=== PATIENT | female | born 1955 | race Caucasian/White ===

== ENCOUNTER 2018-11-17 00:27 | Inpatient (IN) | payer OTHER ==
[~2018-11-17] VITALS: Ht 162.6 cm; Wt 66.2 kg
--- NOTE | 2018-11-17 00:34 | ED.ADGEN ---
Past History Past Medical History: Bronchitis, COPD, CVA, DVT, TIA, Other Smoking: Cigarettes Adult General Chief Complaint Chief Complaint ".. I have a broken heart...my this morning... now I have chest pain.. it really bad..sharp...." HPI HPI Patient is a 63 year old female who presents with above hx and complaints of chest pain. Pt is central, sharp and non-radiating. Pt.states pain is severe. Pt. started at 1900. Pain worse with movement -10/10, 5/10 when resting. Some complaints of shortness of breath. Pt. of 34 years coded this morning and .. Pt. denies prior cardiac hx, but has hx of CVA, carotid stents, HTN, DVT and blood clots. Pt. did take some of her nitro- without any effect on the chest pain. Pt. takes Plavix . Pt. does take daily ASA. Pt. denies any trauma. Pt. very depressed over the of this morning. Pt.does smoke. Does not have home oxygen. No hx of fever or chills. No travel or specific infectious ill contacts except who had a cold. No hx of immunosuppression. Pt. did not receive Flu vaccination this season. No hx of pneumovax or zoster vaccination. Does not remember her last tetanus vaccination. Pt. follows with Dr. Luna. Review of Systems Review of Systems Constitutional: Denies fever or chills [] Eyes: Denies change in visual acuity, redness, or eye pain [] HENT: Denies nasal congestion or sore throat [] Respiratory: Complaints of shortness of breath [] Cardiovascular: No additional information not addressed in HPI [] GI: Denies abdominal pain, nausea, vomiting, bloody stools or diarrhea [] : Denies dysuria or hematuria [] Musculoskeletal: Denies back pain or joint pain [] Integument: Denies rash or skin lesions [] Neurologic: Denies headache, focal weakness or sensory changes [] Endocrine: Denies polyuria or polydipsia [] All other systems were reviewed and found to be within normal limits, except as documented in this note. Family History Family History Non-contributory Current Medications Current Medications Current Medications Medications (Trade) Dose Ordered Sig/Lorene Start Time Stop Time Status Last Admin Dose Admin Acetaminophen (Tylenol) 650 mg PRN Q4HRS PRN 11/17/18 01:45 11/18/18 01:44 Info (Do NOT chart on this entry -- for MONITORING) 1 each PRN DAILY PRN 11/17/18 02:30 11/19/18 02:29 Iohexol (Omnipaque 350 Mg/ml) 100 ml 1X ONCE 11/17/18 02:30 11/17/18 02:31 DC 11/17/18 02:29 100 ML Lactated Ringer's 1,000 ml @ 100 mls/hr Q10H 11/17/18 01:00 11/17/18 10:59 11/17/18 01:24 100 MLS/HR Lorazepam (Ativan) 1 mg 1X ONCE 11/17/18 01:00 11/17/18 01:05 DC 11/17/18 01:25 1 MG Morphine Sulfate (Morphine 2mg Syringe) 2 mg PRN Q2HR PRN 11/17/18 01:45 11/18/18 01:44 Morphine Sulfate (Morphine 4mg Syringe) 4 mg STK-MED ONCE 11/17/18 01:20 11/17/18 01:21 DC Nitroglycerin (Nitro-Bid Oint) 1 inch 1X ONCE 11/17/18 01:00 11/17/18 01:05 DC 11/17/18 01:26 1 INCH Ondansetron HCl (Zofran) 4 mg PRN Q4HRS PRN 11/17/18 01:45 11/18/18 01:44 Allergies Allergies Allergies Coded Allergies Type Severity Reaction Last Updated Verified niacin Adverse Reaction Severe 11/17/18 Yes Uncoded Allergies Type Severity Reaction Last Updated Verified metal Adverse Reaction Intermediate Rash 11/17/18 Physical Exam Physical Exam Constitutional:Moderately acute distress, non-toxic appearance. [] HENT: Normocephalic, atraumatic, bilateral external ears normal, oropharynx moist, no oral exudates, nose normal. [] Eyes: PERRLA, EOMI, conjunctiva normal, no discharge. Glasses. Neck: Normal range of motion, no tenderness, supple, no stridor. [] Cardiovascular:Heart rate regular rhythm, no murmur [] Lungs & Thorax: Bilateral breath sounds equal with scattered wheezes on auscultation []Occasional cough. Hypoxic on room air. Abdomen: Bowel sounds normal, soft, no tenderness, no masses, no pulsatile masses. [] Skin: Warm, dry, no erythema, no rash. Poor turgor. Spider angiomata. Back: No tenderness, no CVA tenderness. [] Extremities: No tenderness, no cyanosis, no clubbing, ROM intact, no edema. [] No cording appreciated. Mild arthritic changes. Neurologic: Alert and oriented X 3, normal motor function, normal sensory function, no focal deficits noted. [] Psychologic: Affect anxious, judgement normal, mood depressed over of her this morning. Current Patient Data Vital Signs Vital Signs Date Time Temp Pulse Resp B/P (MAP) Pulse Ox O2 Delivery O2 Flow Rate FiO2 11/17/18 02:00 74 24 139/59 (85) 95 Nasal Cannula 2.0 11/17/18 00:30 98.5 Lab Results Laboratory Tests Test 11/17/18 00:52 11/17/18 01:11 White Blood Count 9.1 x10^3/uL (4.0-11.0) Red Blood Count 4.67 x10^6/uL (3.50-5.40) Hemoglobin 12.4 g/dL (12.0-15.5) Hematocrit 37.0 % (36.0-47.0) Mean Corpuscular Volume 79 fL (79-100) Mean Corpuscular Hemoglobin 27 pg (25-35) Mean Corpuscular Hemoglobin Concent 33 g/dL (31-37) Red Cell Distribution Width 22.7 % (11.5-14.5) H Platelet Count 225 x10^3/uL (140-400) Neutrophils (%) (Auto) 85 % (31-73) H Lymphocytes (%) (Auto) 9 % (24-48) L Monocytes (%) (Auto) 5 % (0-9) Eosinophils (%) (Auto) 1 % (0-3) Basophils (%) (Auto) 1 % (0-3) Neutrophils # (Auto) 7.7 x10^3uL (1.8-7.7) Lymphocytes # (Auto) 0.8 x10^3/uL (1.0-4.8) L Monocytes # (Auto) 0.5 x10^3/uL (0.0-1.1) Eosinophils # (Auto) 0.1 x10^3/uL (0.0-0.7) Basophils # (Auto) 0.1 x10^3/uL (0.0-0.2) Platelet Estimate Adequate (ADEQUATE) Anisocytosis Slight Microcytosis Slight Prothrombin Time 11.1 SEC (9.4-11.4) Prothrombin Time INR 1.1 (0.9-1.1) PTT 27 SEC (23-33) D-Dimer (Adela) 1.03 mg/L (0.00-0.50) H Sodium Level 135 mmol/L (136-145) L Potassium Level 3.6 mmol/L (3.5-5.1) Chloride Level 99 mmol/L (98-107) Carbon Dioxide Level 26 mmol/L (21-32) Anion Gap 10 (6-14) Blood Urea Nitrogen 4 mg/dL (7-20) L Creatinine 0.5 mg/dL (0.6-1.0) L Estimated GFR (Cockcroft-Gault) 123.8 Glucose Level 98 mg/dL (70-99) Calcium Level 9.2 mg/dL (8.5-10.1) Magnesium Level 2.1 mg/dL (1.8-2.4) Total Bilirubin 0.5 mg/dL (0.2-1.0) Direct Bilirubin 0.1 mg/dL (0.0-0.2) Aspartate Amino Transferase (AST) 12 U/L (15-37) L Alanine Aminotransferase (ALT) 12 U/L (14-59) L Alkaline Phosphatase 59 U/L (46-116) Creatine Kinase 89 U/L (26-192) Troponin I Quantitative 0.022 ng/mL (0-0.055) HJ-Owv-B-Type Natriuretic Peptide 377 pg/mL (0-124) H Total Protein 7.4 g/dL (6.4-8.2) Albumin 3.0 g/dL (3.4-5.0) L Lipase 55 U/L (73-393) L Urine Collection Type Void Urine Color Yellow Urine Clarity Clear Urine pH 7.0 Urine Specific [place] <=1.005 Urine Protein Neg (NEG-TRACE) Urine Glucose (UA) Neg mg/dL (NEG) Urine Ketones (Stick) Neg mg/dL (NEG) Urine Blood Trace (NEG) Urine Nitrite Neg (NEG) Urine Bilirubin Neg (NEG) Urine Urobilinogen Dipstick 0.2 mg/dL (0.2 mg/dL) Urine Leukocyte Esterase Neg (NEG) Urine RBC 0 /HPF (0-2) Urine WBC Occ /HPF (0-4) Urine Squamous Epithelial Cells Few /LPF Urine Bacteria 0 /HPF (0-FEW) Urine Opiates Screen Neg (NEG) Urine Methadone Screen Neg (NEG) Urine Barbiturates Neg (NEG) Urine Phencyclidine Screen Neg (NEG) Urine Amphetamine/Methamphetamine Neg (NEG) Urine Benzodiazepines Screen Neg (NEG) Urine Cocaine Screen Neg (NEG) Urine Cannabinoids Screen Neg (NEG) Urine Ethyl Alcohol Neg (NEG) EKG EKG My interpretation EKG shows a sinus rhythm at 86 bpm. There is some nonspecific anterior lateral changes. But no findings acute STEMI of contralateral changes. Does have bimodal P-wave.[] Radiology/Procedures Radiology/Procedures Interpretation of chest x-ray shows COPD type changes. Borderline cardiac silhouette.[]Hilar adenopathy. Course & Med Decision Making Course & Med Decision Making Pertinent Labs and Imaging studies reviewed. (See chart for details) Heart score 4-5. Pt. admitted to Dr. Fairbanks with cardiology consult. US and CT pending at time of admission. [] Final Impression Final Impression 1. Chest Pain 2. HTN 3. Grief 4. COPD 5. Hx of CVA's 6. Tobacco Use 7. Hypoxia on Room air 8. Elevated D-dimer = 1.03 9. Pulmonary Adenopathy 10. Bronchitis Dragon Disclaimer Dragon Disclaimer This electronic medical record was generated, in whole or in part, using a voice recognition dictation system. Discharge Summary Visit Information Final Diagnosis Problems Medical Problems: (1) Chest pain Status: Acute Brief Hospital Course Allergies Allergies Coded Allergies Type Severity Reaction Last Updated Verified niacin Adverse Reaction Severe 11/17/18 Yes Uncoded Allergies Type Severity Reaction Last Updated Verified metal Adverse Reaction Intermediate Rash 11/17/18 Vital Signs Vital Signs Date Time Temp Pulse Resp B/P (MAP) Pulse Ox O2 Delivery O2 Flow Rate FiO2 11/17/18 02:00 74 24 139/59 (85) 95 Nasal Cannula 2.0 11/17/18 00:30 98.5 Lab Results Laboratory Tests Test 11/17/18 00:52 11/17/18 01:11 White Blood Count 9.1 x10^3/uL (4.0-11.0) Red Blood Count 4.67 x10^6/uL (3.50-5.40) Hemoglobin 12.4 g/dL (12.0-15.5) Hematocrit 37.0 % (36.0-47.0) Mean Corpuscular Volume 79 fL (79-100) Mean Corpuscular Hemoglobin 27 pg (25-35) Mean Corpuscular Hemoglobin Concent 33 g/dL (31-37) Red Cell Distribution Width 22.7 % (11.5-14.5) Platelet Count 225 x10^3/uL (140-400) Neutrophils (%) (Auto) 85 % (31-73) Lymphocytes (%) (Auto) 9 % (24-48) Monocytes (%) (Auto) 5 % (0-9) Eosinophils (%) (Auto) 1 % (0-3) Basophils (%) (Auto) 1 % (0-3) Neutrophils # (Auto) 7.7 x10^3uL (1.8-7.7) Lymphocytes # (Auto) 0.8 x10^3/uL (1.0-4.8) Monocytes # (Auto) 0.5 x10^3/uL (0.0-1.1) Eosinophils # (Auto) 0.1 x10^3/uL (0.0-0.7) Basophils # (Auto) 0.1 x10^3/uL (0.0-0.2) Platelet Estimate Adequate (ADEQUATE) Anisocytosis Slight Microcytosis Slight Prothrombin Time 11.1 SEC (9.4-11.4) Prothromb Time International Ratio 1.1 (0.9-1.1) Activated Partial Thromboplast Time 27 SEC (23-33) D-Dimer (Adela) 1.03 mg/L (0.00-0.50) Sodium Level 135 mmol/L (136-145) Potassium Level 3.6 mmol/L (3.5-5.1) Chloride Level 99 mmol/L (98-107) Carbon Dioxide Level 26 mmol/L (21-32) Anion Gap 10 (6-14) Blood Urea Nitrogen 4 mg/dL (7-20) Creatinine 0.5 mg/dL (0.6-1.0) Estimated GFR (Cockcroft-Gault) 123.8 Glucose Level 98 mg/dL (70-99) Calcium Level 9.2 mg/dL (8.5-10.1) Magnesium Level 2.1 mg/dL (1.8-2.4) Total Bilirubin 0.5 mg/dL (0.2-1.0) Direct Bilirubin 0.1 mg/dL (0.0-0.2) Aspartate Amino Transf (AST/SGOT) 12 U/L (15-37) Alanine Aminotransferase (ALT/SGPT) 12 U/L (14-59) Alkaline Phosphatase 59 U/L (46-116) Creatine Kinase 89 U/L (26-192) Troponin I Quantitative 0.022 ng/mL (0-0.055) HI-Wuo-B-Type Natriuretic Peptide 377 pg/mL (0-124) Total Protein 7.4 g/dL (6.4-8.2) Albumin 3.0 g/dL (3.4-5.0) Lipase 55 U/L (73-393) Urine Collection Type Void Urine Color Yellow Urine Clarity Clear Urine pH 7.0 Urine Specific [place] <=1.005 Urine Protein Neg (NEG-TRACE) Urine Glucose (UA) Neg mg/dL (NEG) Urine Ketones (Stick) Neg mg/dL (NEG) Urine Blood Trace (NEG) Urine Nitrite Neg (NEG) Urine Bilirubin Neg (NEG) Urine Urobilinogen Dipstick 0.2 mg/dL (0.2 mg/dL) Urine Leukocyte Esterase Neg (NEG) Urine RBC 0 /HPF (0-2) Urine WBC Occ /HPF (0-4) Urine Squamous Epithelial Cells Few /LPF Urine Bacteria 0 /HPF (0-FEW) Urine Opiates Screen Neg (NEG) Urine Methadone Screen Neg (NEG) Urine Barbiturates Neg (NEG) Urine Phencyclidine Screen Neg (NEG) Urine Amphetamine/Methamphetamine Neg (NEG) Urine Benzodiazepines Screen Neg (NEG) Urine Cocaine Screen Neg (NEG) Urine Cannabinoids Screen Neg (NEG) Urine Ethyl Alcohol Neg (NEG) Brief Hospital Course Ms. Sanchez is a 63 old female who presented with chest pain and grief. Admitted to Dr. Fairbanks with cardiology consult. Discharge Information Condition at Discharge: Improved Dischare Medications Current Medications Lorazepam (Ativan) 1 mg 1X ONCE IV Last administered on 11/17/18at 01:25; Admin Dose 1 MG; Start 11/17/18 at 01:00; Stop 11/17/18 at 01:05; Status DC Morphine Sulfate (Morphine 2mg Syringe) 2 mg 1X ONCE IV Last administered on 11/17/18at 01:00; Admin Dose 2 MG; Start 11/17/18 at 01:00; Stop 11/17/18 at 01:05; Status DC Lactated Ringer's 1,000 ml @ 100 mls/hr Q10H IV Last administered on 11/17/18at 01:24; Admin Dose 100 MLS/HR; Start 11/17/18 at 01:00; Stop 11/17/18 at 10:59 Nitroglycerin (Nitro-Bid Oint) 1 inch 1X ONCE TP Last administered on 11/17/18at 01:26; Admin Dose 1 INCH; Start 11/17/18 at 01:00; Stop 11/17/18 at 01:05; Status DC Morphine Sulfate (Morphine 4mg Syringe) 4 mg STK-MED ONCE .ROUTE ; Start 11/17/18 at 01:20; Stop 11/17/18 at 01:21; Status DC Ondansetron HCl (Zofran) 4 mg PRN Q4HRS PRN IV NAUSEA/VOMITING; Start 11/17/18 at 01:45; Stop 11/18/18 at 01:44 Morphine Sulfate (Morphine 2mg Syringe) 2 mg PRN Q2HR PRN IV PAIN; Start 11/17/18 at 01:45; Stop 11/18/18 at 01:44 Acetaminophen (Tylenol) 650 mg PRN Q4HRS PRN PO FEVER; Start 11/17/18 at 01:45; Stop 11/18/18 at 01:44 Iohexol (Omnipaque 350 Mg/ml) 100 ml 1X ONCE IV Last administered on 11/17/18at 02:29; Admin Dose 100 ML; Start 11/17/18 at 02:30; Stop 11/17/18 at 02:31; Status DC Info (Do NOT chart on this entry -- for MONITORING) 1 each PRN DAILY PRN MC SEE COMMENTS; Start 11/17/18 at 02:30; Stop 11/19/18 at 02:29 Active Scripts Active Reported [Asprin] 81 Mg AC DAILY Atorvastatin Calcium 40 Mg Tablet 40 Mg PO QHS Plavix (Clopidogrel Bisulfate) 75 Mg Tablet 75 Mg PO DAILY Amlodipine Besylate 10 Mg Tablet 10 Mg PO DAILY Lisinopril 20 Mg Tablet 20 Mg PO DAILY Discharge Summary Visit Information Final Diagnosis Problems Medical Problems: (1) Chest pain Status: Acute Brief Hospital Course Allergies Allergies Coded Allergies Type Severity Reaction Last Updated Verified niacin Adverse Reaction Severe 11/17/18 Yes Uncoded Allergies Type Severity Reaction Last Updated Verified metal Adverse Reaction Intermediate Rash 11/17/18 Vital Signs Vital Signs Date Time Temp Pulse Resp B/P (MAP) Pulse Ox O2 Delivery O2 Flow Rate FiO2 11/17/18 02:00 74 24 139/59 (85) 95 Nasal Cannula 2.0 11/17/18 00:30 98.5 Lab Results Laboratory Tests Test 11/17/18 00:52 11/17/18 01:11 White Blood Count 9.1 x10^3/uL (4.0-11.0) Red Blood Count 4.67 x10^6/uL (3.50-5.40) Hemoglobin 12.4 g/dL (12.0-15.5) Hematocrit 37.0 % (36.0-47.0) Mean Corpuscular Volume 79 fL (79-100) Mean Corpuscular Hemoglobin 27 pg (25-35) Mean Corpuscular Hemoglobin Concent 33 g/dL (31-37) Red Cell Distribution Width 22.7 % (11.5-14.5) Platelet Count 225 x10^3/uL (140-400) Neutrophils (%) (Auto) 85 % (31-73) Lymphocytes (%) (Auto) 9 % (24-48) Monocytes (%) (Auto) 5 % (0-9) Eosinophils (%) (Auto) 1 % (0-3) Basophils (%) (Auto) 1 % (0-3) Neutrophils # (Auto) 7.7 x10^3uL (1.8-7.7) Lymphocytes # (Auto) 0.8 x10^3/uL (1.0-4.8) Monocytes # (Auto) 0.5 x10^3/uL (0.0-1.1) Eosinophils # (Auto) 0.1 x10^3/uL (0.0-0.7) Basophils # (Auto) 0.1 x10^3/uL (0.0-0.2) Platelet Estimate Adequate (ADEQUATE) Anisocytosis Slight Microcytosis Slight Prothrombin Time 11.1 SEC (9.4-11.4) Prothromb Time International Ratio 1.1 (0.9-1.1) Activated Partial Thromboplast Time 27 SEC (23-33) D-Dimer (Adela) 1.03 mg/L (0.00-0.50) Sodium Level 135 mmol/L (136-145) Potassium Level 3.6 mmol/L (3.5-5.1) Chloride Level 99 mmol/L (98-107) Carbon Dioxide Level 26 mmol/L (21-32) Anion Gap 10 (6-14) Blood Urea Nitrogen 4 mg/dL (7-20) Creatinine 0.5 mg/dL (0.6-1.0) Estimated GFR (Cockcroft-Gault) 123.8 Glucose Level 98 mg/dL (70-99) Calcium Level 9.2 mg/dL (8.5-10.1) Magnesium Level 2.1 mg/dL (1.8-2.4) Total Bilirubin 0.5 mg/dL (0.2-1.0) Direct Bilirubin 0.1 mg/dL (0.0-0.2) Aspartate Amino Transf (AST/SGOT) 12 U/L (15-37) Alanine Aminotransferase (ALT/SGPT) 12 U/L (14-59) Alkaline Phosphatase 59 U/L (46-116) Creatine Kinase 89 U/L (26-192) Troponin I Quantitative 0.022 ng/mL (0-0.055) NZ-Zaw-J-Type Natriuretic Peptide 377 pg/mL (0-124) Total Protein 7.4 g/dL (6.4-8.2) Albumin 3.0 g/dL (3.4-5.0) Lipase 55 U/L (73-393) Urine Collection Type Void Urine Color Yellow Urine Clarity Clear Urine pH 7.0 Urine Specific [place] <=1.005 Urine Protein Neg (NEG-TRACE) Urine Glucose (UA) Neg mg/dL (NEG) Urine Ketones (Stick) Neg mg/dL (NEG) Urine Blood Trace (NEG) Urine Nitrite Neg (NEG) Urine Bilirubin Neg (NEG) Urine Urobilinogen Dipstick 0.2 mg/dL (0.2 mg/dL) Urine Leukocyte Esterase Neg (NEG) Urine RBC 0 /HPF (0-2) Urine WBC Occ /HPF (0-4) Urine Squamous Epithelial Cells Few /LPF Urine Bacteria 0 /HPF (0-FEW) Urine Opiates Screen Neg (NEG) Urine Methadone Screen Neg (NEG) Urine Barbiturates Neg (NEG) Urine Phencyclidine Screen Neg (NEG) Urine Amphetamine/Methamphetamine Neg (NEG) Urine Benzodiazepines Screen Neg (NEG) Urine Cocaine Screen Neg (NEG) Urine Cannabinoids Screen Neg (NEG) Urine Ethyl Alcohol Neg (NEG) Brief Hospital Course Ms. Sanchez is a 63 old female who presented with hx chest pain. Discharge Information Condition at Discharge: Improved Disposition/Orders: D/C to Home Dischare Medications Current Medications Lorazepam (Ativan) 1 mg 1X ONCE IV Last administered on 11/17/18at 01:25; Admin Dose 1 MG; Start 11/17/18 at 01:00; Stop 11/17/18 at 01:05; Status DC Morphine Sulfate (Morphine 2mg Syringe) 2 mg 1X ONCE IV Last administered on 11/17/18at 01:00; Admin Dose 2 MG; Start 11/17/18 at 01:00; Stop 11/17/18 at 01:05; Status DC Lactated Ringer's 1,000 ml @ 100 mls/hr Q10H IV Last administered on 11/17/18at 01:24; Admin Dose 100 MLS/HR; Start 11/17/18 at 01:00; Stop 11/17/18 at 10:59 Nitroglycerin (Nitro-Bid Oint) 1 inch 1X ONCE TP Last administered on 11/17/18at 01:26; Admin Dose 1 INCH; Start 11/17/18 at 01:00; Stop 11/17/18 at 01:05; Status DC Morphine Sulfate (Morphine 4mg Syringe) 4 mg STK-MED ONCE .ROUTE ; Start 11/17/18 at 01:20; Stop 11/17/18 at 01:21; Status DC Ondansetron HCl (Zofran) 4 mg PRN Q4HRS PRN IV NAUSEA/VOMITING; Start 11/17/18 at 01:45; Stop 11/18/18 at 01:44 Morphine Sulfate (Morphine 2mg Syringe) 2 mg PRN Q2HR PRN IV PAIN; Start at 01:45; Stop 11/18/18 at 01:44 Acetaminophen (Tylenol) 650 mg PRN Q4HRS PRN PO FEVER; Start 11/17/18 at 01:45; Stop 11/18/18 at 01:44 Iohexol (Omnipaque 350 Mg/ml) 100 ml 1X ONCE IV Last administered on 11/17/18at 02:29; Admin Dose 100 ML; Start 11/17/18 at 02:30; Stop 11/17/18 at 02:31; Status DC Info (Do NOT chart on this entry -- for MONITORING) 1 each PRN DAILY PRN MC SEE COMMENTS; Start 11/17/18 at 02:30; Stop 11/19/18 at 02:29 Active Scripts Active Reported [Asprin] 81 Mg AC DAILY Atorvastatin Calcium 40 Mg Tablet 40 Mg PO QHS Plavix (Clopidogrel Bisulfate) 75 Mg Tablet 75 Mg PO DAILY Amlodipine Besylate 10 Mg Tablet 10 Mg PO DAILY Lisinopril 20 Mg Tablet 20 Mg PO DAILY Dragon Disclaimer This chart was dictated in whole or in part using Voice Recognition software in a busy, high-work load, and often noisy Emergency Department environment. It may contain unintended and wholly unrecognized errors or omissions. Dragon Disclaimer This chart was dictated in whole or in part using Voice Recognition software in a busy, high-work load, and often noisy Emergency Department environment. It may contain unintended and wholly unrecognized errors or omissions. YOLANDA LUTHER MD Nov 17, 2018 00:34
[2018-11-17] MEDS ORDERED: AMLO10TA8 PO (00:45)
[2018-11-17] MEDS ORDERED: ATOR40TA59 PO (00:45)
[2018-11-17] MEDS ORDERED: CLOP75TA57 PO (00:45)
[2018-11-17] MEDS ORDERED: LISI-334 PO (00:45)
[2018-11-17] MEDS ORDERED: IV RINGERS SOLUTION,LACTATED 1,000 ML IV SCH (01:00)
[2018-11-17] MEDS ORDERED: MORPHINE SULFATE 2 MG/ML DISP.SYRIN. IV ONE (01:00)
[2018-11-17] MEDS ORDERED: NITROGLYCERIN OINT 1 GM PACKET. TP ONE (01:00)
[2018-11-17] MEDS ORDERED: MORPHINE SULFATE 4 MG/ML DISP.SYRIN. ONE (01:20)
[2018-11-17 01:32] LABS: BASO # 0.1 x10^3/uL (0.0-0.2); BASO % 1 % (0-3); EOS # 0.1 x10^3/uL (0.0-0.7); EOS % 1 % (0-3); HEMOGLOBIN 12.4 g/dL (12.0-15.5); LYMPH # 0.8 x10^3/uL (1.0-4.8); LYMPH % 9 % (24-48); MEAN CORPUSCULAR HEMOGLOBIN 27 pg (25-35); MEAN CORPUSCULAR HGB CONC 33 g/dL (31-37); MEAN CORPUSCULAR VOLUME 79 fL (79-100); MONO # 0.5 x10^3/uL (0.0-1.1); MONO % 5 % (0-9); NEUT # 7.7 x10^3uL (1.8-7.7); NEUT % 85 % (31-73); PLATELET COUNT 225 x10^3/uL (140-400); RED BLOOD COUNT 4.67 x10^6/uL (3.50-5.40); RED CELL DISTRIBUTION WIDTH 22.7 % (11.5-14.5); WHITE BLOOD COUNT 9.1 x10^3/uL (4.0-11.0)
[2018-11-17 01:42] LABS: CALCIUM 9.2 mg/dL (8.5-10.1); CREATININE 0.5 mg/dL (0.6-1.0); DIRECT BILIRUBIN 0.1 mg/dL (0.0-0.2); GFR 123.8; MAGNESIUM 2.1 mg/dL (1.8-2.4); POTASSIUM 3.6 mmol/L (3.5-5.1); TOTAL BILIRUBIN 0.5 mg/dL (0.2-1.0); TOTAL PROTEIN 7.4 g/dL (6.4-8.2)
[2018-11-17] MEDS ORDERED: ACETAMINOPHEN 325 MG TABLET PO PRN (01:45)
[2018-11-17] MEDS ORDERED: ONDANSETRON PF 4 MG/2 ML VIAL. IV PRN (01:45)
[2018-11-17] MEDS ORDERED: MORPHINE SULFATE 2 MG/ML DISP.SYRIN. IV PRN (01:45)
[2018-11-17 01:49] LABS: ANISOCYTOSIS SLIGHT; MICROCYTOSIS SLIGHT; PLT ESTIMATE ADEQUATE (ADEQUATE)
[2018-11-17 02:02] LABS: BACTERIA,URINE 0 /HPF (0-FEW); BILIRUBIN,URINE NEG (NEG); CLARITY,URINE CLEAR; COLOR,URINE YELLOW; GLUCOSE,URINE NEG (NEG); NITRITE,URINE NEG (NEG); RBC,URINE 0 /HPF (0-2); SQUAMOUS EPITHELIAL CELL,UR FEW /LPF; UROBILINOGEN,URINE 0.2 mg/dL (0.2 mg/dL); WBC,URINE OCC /HPF (0-4)
[2018-11-17 02:04] LABS: BARBITURATES NEG (NEG); BENZODIAZEPINES NEG (NEG); CANNABINOIDS NEG (NEG); COCAINE NEG (NEG); METHADONE NEG (NEG); OPIATES NEG (NEG); PHENCYCLIDINE NEG (NEG)
[2018-11-17 02:06] LABS: AMPHETAMINE/METHAMPHETAMINE NEG (NEG)
[2018-11-17] MEDS ORDERED: IOHEXOL 350 MG/ML 100 ML VIAL. IV ONE (02:30)
[2018-11-17] MEDS ORDERED: CONTRAST GIVEN MC PRN (02:30)
[2018-11-17] MEDS ORDERED: ENOXAPARIN ** NOTE DOSE ** SYRINGE SQ ONE ×2 (02:41→02:43)
[2018-11-17 03:21] VITALS: BP 151/69
--- NOTE | 2018-11-17 03:42 | RAD ---
INDICATION: Omni 350 75cc: PE protocol: Pleuritic chest pain, short of air, elevated d-dimer, cough COMPARISON: None. TECHNIQUE: Axial CT images obtained through the chest. Intravenous contrast utilized. Angiogram 3D images processed per protocol. One or more of the following individualized dose reduction techniques were utilized for this examination: 1. Automated exposure control; 2. Adjustment of the mA and/or kV according to patient size; 3. Use of iterative reconstruction technique. FINDINGS: Cystic changes bilateral lungs. Within the bilateral lower lungs there is interstitial thickening as well as multifocal groundglass as well as nodular and masslike opacities. Liver is low density. There are is mediastinal and hilar lymphadenopathy. For example conglomerate subcarinal region measuring approximately 15 x 34 mm. Enlarged lymph node right hilum measuring up to 26 x 15 mm. Degenerative changes spine. There is possible penetrating ulcer or ulcerative plaque along the left lateral aspect of the aorta near hiatus. Calcific atherosclerosis as well as soft plaque seen within aorta. Portions of ascending thoracic aorta obscured by motion. Coronary artery calcific atherosclerosis. No embolus in the main, right main or left main pulmonary artery but peripheral evaluation is limited secondary to motion and regions of opacification. IMPRESSION: No embolus in the main, right main or left main pulmonary artery. Some limitation peripherally secondary to motion and opacification of the lung parenchyma. Atherosclerotic disease of the thoracic aorta with portion of ascending thoracic aorta obscured and a suspected penetrating ulcer or ulcerated plaque near hiatus on the left. Within the bilateral lower lungs there is interstitial thickening as well as patchy nodular and masslike opacities. This can be seen with infectious or inflammatory etiology as well as aspiration however a follow-up will be needed to ensure that this decreases in severity to ensure that this is not secondary to lung neoplasm. Mediastinal and hilar lymphadenopathy which could be reactive in nature but follow-up will be needed to ensure that this decreases in severity to ensure that there is not neoplastic involvement. There is loss of height of numerous vertebral bodies throughout the thoracic spine which could be degenerative in nature or secondary to mild compression deformities of unknown age. Electronically signed by: Brian Laguerre MD (11/17/2018 3:40 AM) [id number]
[2018-11-17] MEDS ORDERED: ASPRIN AC (04:00)
[2018-11-17] MEDS ORDERED: AZITHROMYCIN 250 MG TABLET. PO ONE (04:30)
[2018-11-17] MEDS ORDERED: IPRATRPIUM/ALBUTEROL 0.5/2.5MG 3 ML NEBU. ONE (05:37)
[2018-11-17] MEDS: NITROGLYCERIN OINT 1 GM PACKET. TP SCH ×2 (05:37→14:14)
[2018-11-17] MEDS: IPRATRPIUM/ALBUTEROL 0.5/2.5MG 3 ML NEBU. NEB SCH ×3 (05:40→16:14)
[2018-11-17 06:39] VITALS: BP 138/66
--- NOTE | 2018-11-17 06:50 | EKG ---
[address] [id number] Test Date: 2018-11-17 Test Time: 00:39:09 Pat Name: LUKAS NEWSOME Department: Room: 117 A Gender: F [place] Deckhand: NIKITA : 1955 Requested By: YOLANDA LUTHER Order Number: [id number] Reading MD: Jareth Glover MD Measurements Intervals [place] Rate: 86 P: 50 GA: 154 QRS: 19 QRSD: 84 T: 50 QT: 346 QTc: 417 Interpretive Statements SINUS RHYTHM Electronically Signed On 11-17-2018 12:52:19 CDT by Jareth Glover MD
--- NOTE | 2018-11-17 08:26 | RAD ---
Examination: PORTABLE CHEST 1V History: Chest pain Comparison/Correlation: None Findings: Portable frontal view chest was obtained. Heart size is normal. No pneumothorax. Bibasilar patchy linear infiltrates greater on the right noted. Bony structures are grossly unremarkable. No definite effusion. Impression: Bibasilar infiltrates greater on the right. Electronically signed by: Foster Burns MD (11/17/2018 8:23 AM) [facility]
[2018-11-17] MEDS ORDERED: ENOXAPARIN ** NOTE DOSE ** SYRINGE SQ SCH (09:00)
[2018-11-17] MEDS ORDERED: methylPREDNISolone SOD SUCC PF 40 MG/ML VIAL. IV SCH (09:00)
--- NOTE | 2018-11-17 09:52 | RAD ---
Right lower extremity venous duplex study 11/17/2018 Clinical History: Elevated d-dimer. Right leg pain. Technique: Using a combination of real time ultrasound imaging and color-flow and pulse Doppler imaging techniques along with graded compression and augmentation, duplex evaluation of the deep venous system of the right lower extremity was performed. Multiple images were obtained. Findings: There is no sonographic evidence of deep venous thrombosis involving the visualized deep venous structures of the right lower extremity. Impression: Negative study. Electronically signed by: Ezequiel Aquino MD (11/17/2018 9:49 AM) [id number]
[2018-11-17 11:11] VITALS: BP 132/54
--- NOTE | 2018-11-17 14:17 | HP ---
ADMIT DATE: 11/17/2018 HISTORY OF PRESENT ILLNESS: The patient is a 63-year-old female patient who came to the Emergency Room complaining of chest pain after her this morning. Her pain is mostly retrosternal. She rated at 10/10 in severity. She took about 3 sublingual nitroglycerin without much improvement. Her pain lasted almost 3 hours according to her and the patient did complain of shortness of breath and diaphoresis, but denied any nausea or vomiting. Denied any radiation of the pain. The patient is already on Plavix and aspirin and has had an EKG done, which showed that she was in sinus rhythm at 86 beats per minute with nonspecific anterolateral changes, but no finding of acute ST segment elevation myocardial infarction and she was admitted for further evaluation and to consult the cardiology team. Her first set of troponin was 0.022. We will do 2 more sets of cardiac enzyme. We will check her fasting lipid profile and consult the gyro mechanic. PAST MEDICAL HISTORY: Significant for hypertension, hyperlipidemia, peripheral vascular disease. She has a cerebrovascular accident involving both sides, generalized osteoarthritis, particularly both knee joints. She has also bilateral carotid stenosis, bilateral cataracts and right visual field defect. PAST SURGICAL HISTORY: Significant for bilateral carotid stent deployment. She has unilateral oophorectomy as well as appendectomy. ALLERGIES: She is allergic to METAL AND NIACIN. MEDICATIONS: She is currently on following medications: She is on Plavix 75 mg once a day, atorvastatin calcium 40 mg at bedtime, amlodipine 10 mg once a day, lisinopril 20 mg once a day, and aspirin 81 mg once a day. FAMILY HISTORY: She has 2 brothers older and still alive, but does not know much about them. She has 4 sisters. Two of them in her 80s, the cause of is not clear to her. She has a younger sister at age of 61 because of the lung cancer and the younger sister at age of 49 because of myocardial infarction. Her father at the age of 74 because of brain tumor and mother at age of 83 because of congestive heart failure. SOCIAL HISTORY: She is . She smokes more than 1-1/2 pack a day. She does not drink alcohol or recreational drugs. 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 REVIEW OF SYSTEMS: The patient denied any blurring of vision, but has bilateral cataracts that required surgery. Denied any glaucoma or macular degeneration. She did have right-sided visual defect due to one of her strokes. She has also bilateral tinnitus, but denied any deafness or earache. Denied any nosebleeds, stuffy nose, or postnasal drip. Denied any sore throat, sore tongue, toothache, hoarseness of voice or difficulty swallowing. Denied any hematemesis, melena, or hematochezia. Denied any dysuria, frequency, or hematuria. Did complain of obviously chest pain and shortness of breath, but denied any orthopnea or paroxysmal nocturnal dyspnea. Denied any chills, rigors, or fever. Denied any dizziness, lightheadedness, or vertigo. PHYSICAL EXAMINATION: GENERAL: On arrival to the Emergency Room, the patient looked somewhat pale, but no jaundice, cyanosis, or thyromegaly. No jugular venous distension. No lower limb edema. VITAL SIGNS: Her heart rate was 73, blood pressure was 138/66, temperature was 97.5, respiratory rate was 18, and oxygen saturation was 96% on 3 liters of oxygen by nasal cannula. HEAD, EYES, EARS, NOSE, AND THROAT: Showed normocephalic, atraumatic. NECK: Supple. HEART: Showed normal first and second heart sounds. No gallop, rub, or murmur. CHEST: Shows central trachea, equally reduced expansion, reduced air entry. I could not really appreciate any crepitation or rhonchi. ABDOMEN: Distended, soft, nontender. No guarding or rigidity. No organomegaly. All hernial orifice intact. Bowel sounds normal. NEUROLOGIC: She was grossly intact. LABORATORY DATA: On arrival to the Emergency Room showed that her white cell count was 9100, hemoglobin 12, hematocrit 37, MCV 79, and platelet count 225,000. Her chemistry showed a serum sodium 135, potassium 3.6, chloride 99, bicarbonate 26, anion gap of 10, BUN 4, creatinine 0.5, estimated GFR was 124 mL per minute. Her glucose was 98, calcium was 9.2, magnesium was 2.1. Total bilirubin, AST, ALT, alkaline phosphatase were normal. Her first set of cardiac enzyme showed troponin to be less than . Her total protein was 7.4, albumin 3 and lipase was 55. Her prothrombin time was 11.1, INR 1.1, aPTT was 27 and D-dimer was 1.03. Urinalysis showed the urine was yellow, clear with a pH of 7, specific gravity 1.005. The urine was negative for protein, glucose, ketones. There was trace of blood, negative for nitrite and leukocyte esterase. There was no rbc's, no wbc's, and no bacteria. Her toxicology screen was negative. Her chest x-ray showed that heart size is normal. No pneumothorax, bibasilar patchy linear infiltrate, greater on the right, noted bony structures are grossly unremarkable, no definite effusion. The patient underwent CT angiography of the chest, which basically showed that there is no embolism in the main right and left pulmonary arteries. The patient has atherosclerotic disease in ____ portion of the ascending thoracic aorta. The patient has also bilateral lower lung interstitial thickening as well as patchy nodular and mass-like opacities. This can be seen with infectious or inflammatory etiology as well as aspiration; however, followup will be needed to ensure that they are decreased in severity and to ensure that this is not secondary to a lung neoplasm. She has also mediastinal hilar lymphadenopathy, which could be reactive in nature, but followup also needed to be ensured that this decreased in severity to ensure that this is not neoplastic. There is loss of height of numerous vertebral bodies throughout the thoracic spine, which could be degenerative in nature or secondary to mild compression deformities of unknown age. IMPRESSION AND PLAN: In summary, this is a 63-year-old female patient who has multiple risk factors for coronary artery disease. She has bilateral carotid stenosis for which she underwent bilateral stent deployment. She has bilateral cerebrovascular stroke before. She has hypertension and hyperlipidemia. She is a smoker and therefore we will admit the patient and do 2 more sets of cardiac enzyme and consult the gyro mechanic as she probably needs to be evaluated further. She did complain that she has acid reflux, even when she is not eating. She is a heavy smoker, smokes more than a pack and a half a day. She will probably need further evaluation. Dr. Glover is going to see her this afternoon and will make a recommendation. LULU REDD MD DR: JULIAN/lay JOB#: [id number] / [id number]
[2018-11-17 14:28] LABS: THYROID STIM HORMONE (TSH) 0.736 uIU/mL (0.358-3.740)
[2018-11-17 14:46] VITALS: BP 127/62
--- NOTE | 2018-11-17 17:23 | DS ---
DATE OF DISCHARGE: 11/17/2018 HISTORY OF PRESENT ILLNESS: The patient is a 63-year-old female patient who was admitted through the Emergency Department with a complaint of chest pain, mostly retrosternal, rated around 10/10 in severity. She took 3 sublingual nitroglycerin without much improvement. Her pain lasted almost 3 hours according to her and the patient did complain of shortness of breath, diaphoresis. Denied any nausea, vomiting. Denied any radiation of the pain. She is already on Plavix and aspirin and her EKG done showed that she was in sinus rhythm, nonspecific anterolateral changes with no finding of acute ST segment elevation myocardial infarction. She was admitted and has had 3 sets of cardiac enzymes that ruled out myocardial infarction. She was evaluated by the assistant vice president, who recommended that she can be discharged home with a prescription for nitroglycerin and that she should have a followup appointment with the [facility]iology [facility] in 2 weeks' time. PHYSICAL EXAMINATION: GENERAL: When I examined her this afternoon, she looked well and was clearly in no apparent respiratory distress. No pallor, jaundice, cyanosis, or thyromegaly. No jugular venous distension. No limb edema. VITAL SIGNS: Her heart rate was 85, blood pressure was 127/62, temperature was 98.2, respiratory rate was 18 and oxygen saturation was 96%. She is in fact, her oxygen saturation was 91% at rest, we did a 6-minute walk that dropped down to 85%. LABORATORY DATA: As I stated, she has 3 sets of cardiac enzymes were negative. Her triglycerides were 41, total cholesterol was 97, LDL was 55, VLDL was 8, and HDL cholesterol 34, ratio was 2. TSH was normal. Her BUN was 4, creatinine 0.5, her H and H was 12.4 and 37 with normal white cell count and platelets. She was discharged home to continue on amlodipine besylate 10 mg once a day, aspirin 81 mg once a day, atorvastatin calcium 40 mg at bedtime, Plavix 75 mg once a day, lisinopril 20 mg once a day and nitroglycerin 0.4 mg sublingually every 5 minutes x 3. FINAL DISCHARGE DIAGNOSES: Chest pain, atypical, myocardial infarction was ruled out, hypertension, hyperlipidemia, peripheral vascular disease, cerebrovascular accident involving both sides, generalized osteoarthritis, chronic obstructive pulmonary disease and chronic hypoxic respiratory failure. LULU REDD MD DR: Caryn JOB#: [id number] / [id number]
--- NOTE | 2018-11-17 17:26 | PDOC ---
PROVIDER NOTE PROVIDER NOTE PROVIDER NOTE Cardiology consultation note Reason for consultation chest pain History of present illness 63-year-old woman with multiple vascular issues presented to the hospital in the setting of a severe stressful episode after her had . She had significant chest pain which was relieved with nitroglycerin. Subsequently cardiac enzymes have been unremarkable. Her EKG did not reveal any significant abnormalities. She reports that she's feeling better and wishes to go home to help deal with her 's . She has not had any syncope. At home she is mostly sedentary and does not drive due to vision issues but is able to perform ADLs without any significant limitations. She reports compliance with her medications including statin therapy. Past medical history #1 carotid occlusive disease status post bilateral carotid stents 2. Hypertension 3. Dyslipidemia 4. Tobacco abuse 5. Prior CVA Social history: Patient is recently as noted. She smokes approximately 2 packs daily. Denies any significant alcohol or illicit drug use. She has several children Family history is noncontributory Allergies to metal and niacin Current cardiovascular medications Amlodipine, lisinopril, aspirin, Plavix, atorvastatin Physical examination Vital signs afebrile, blood pressures mildly elevated, heart rate is in the 80s On examination she is a frail elderly woman in mild distress. Head and neck exam is unremarkable except for bilateral carotid bruits Cardiac exam is within normal limits Lungs are notable for decreased breath sounds with bilateral wheezing No significant edema Soft abdomen No significant neurologic deficits Diagnostic studies Cardiac enzymes and EKG are within normal limits CTA of the chest does not reveal any significant pulmonary pathology but there is concern for an aortic ulcer/penetrating ulcer Impression: 1. Chest pain - likely stress reaction, cannot rule out underlying coronary disease. 2. PAD - 3. Possible penetrating aortic ulcer - will review images with CT surgery and determine need for outpt w/u or any further testing. Plan: 1. Continue aggressive medical therapy including BP mgmt and statin therapy along with asp/plavix. 2. Outpt stress testing and aortic evaluation. 3. Home with [facility] as well. Discussed with nurse. YASMANY AL MD Nov 17, 2018 17:26
[2018-11-17] MEDS ORDERED: ATORVASTATIN CALCIUM 20 MG TABLET PO SCH (21:00)
[2018-11-17] MEDS ORDERED: LACTOBACILLUS RHAMNOSUS GG 1 CAPSULE. PO SCH (21:00)
[2018-11-18] MEDS ORDERED: ASPIRIN 81 MG TAB.CHEW PO SCH (08:00)
[2018-11-18] MEDS ORDERED: CLOPIDOGREL BISULFATE 75 MG TABLET PO SCH (08:00)
[2018-11-18] MEDS ORDERED: AZITHROMYCIN 250 MG TABLET. PO SCH (09:00)
[2018-11-18] MEDS ORDERED: amLODIPine BESYLATE 10 MG TABLET PO SCH (09:00)
[2018-11-18] MEDS ORDERED: LISINOPRIL 20 MG TABLET PO SCH (09:00)
== END 2018-11-17 18:06 | disposition home or self-care (01) | DRG 313 ==
LOC: ER 00:27 → 1 SOUTH 02:30
PROVIDERS: ADMIT Internal Medicine; ATTEND Internal Medicine
DX: R07.89 Other chest pain (principal); J96.10 Chronic respiratory failure, unspecified whether with hypoxia or hypercapnia; E78.5 Hyperlipidemia, unspecified; F17.210 Nicotine dependence, cigarettes, uncomplicated; I10 Essential (primary) hypertension; I73.9 Peripheral vascular disease, unspecified; J44.9 Chronic obstructive pulmonary disease, unspecified; K21.9 Gastro-esophageal reflux disease without esophagitis; M15.9 Polyosteoarthritis, unspecified; Z79.02 Long term (current) use of antithrombotics/antiplatelets; Z79.82 Long term (current) use of aspirin; Z80.1 Family history of malignant neoplasm of trachea, bronchus and lung; Z82.49 Family history of ischemic heart disease and other diseases of the circulatory system; Z86.73 Personal history of transient ischemic attack (TIA), and cerebral infarction without residual deficits; Z90.721 Acquired absence of ovaries, unilateral; Z90.49 Acquired absence of other specified parts of digestive tract; Z88.1 Allergy status to other antibiotic agents; Z88.8 Allergy status to other drugs, medicaments and biological substances; Z95.2 Presence of prosthetic heart valve
CPT/HCPCS: 36415; 71045; 71275; 80048; 80061; 80076; 80307; 81001; 82550; 83690; 83735; 83880; 84443; 84484; 85025; 85379; 85610; 85730; 93005; 93971; 94640; G0238; J0456; J1650; J2060; J2270; J2920; J7120; J7620; Q9967